=== PATIENT | female | born 1990 | race African-American/Black ===

== ENCOUNTER 2024-05-08 02:59 | Emergency (ER) | payer MEDICAID ==
[~2024-05-08] VITALS: Ht 172.7 cm; Wt 72.0 kg
[2024-05-08 03:00] VITALS: O2SAT 100
[2024-05-08 04:12] LABS: BASOPHILS % 0.5 % (0.0-2.0); EOSINOPHILS % 1.8 % (0.0-5.0); HEMATOCRIT. 38.5 % (36.0-48.0); HEMOGLOBIN. 12.5 g/dL (12.0-16.0); LYMPHOCYTES % 28.5 % (20.0-50.0); MEAN CORPUSCULAR HEMOGLOBIN 27.9 pg (28.0-32.0); MEAN CORPUSCULAR HGB CONC 32.5 g/dL (31.0-37.0); MEAN CORPUSCULAR VOLUME 85.9 fL (81.0-99.0); MEAN PLATELET VOLUME 8.2 fl (7.4-10.4); MONOCYTES % 4.2 % (2.0-8.0); PLATELET 243 x1000/uL (130-400); RED BLOOD CELL COUNT 4.48 mill/uL (4.2-5.4); RED CELL DISTRIBUTION WIDTH 15.4 % (11.6-14.6); WHITE BLOOD COUNT 8.9 x1000/uL (4.5-11.0)
[2024-05-08] MEDS: MORPHINE SULFATE 4 MG/ML INJ (FOR IV/IM USE) IV STA (04:17)
[2024-05-08] MEDS: ONDANSETRON HCL 4MG/2ML INJ IV STA (04:18)
[2024-05-08 04:22] LABS: CHLORIDE 112 mEq/L (98-107); POTASSIUM 3.5 mEq/L (3.5-5.1); SODIUM 142 mEq/L (136-145)
[2024-05-08 04:23] LABS: CARBON DIOXIDE 22 mEq/L (21-32)
[2024-05-08 04:24] LABS: CALCIUM 9.2 mg/dL (8.7-10.4)
[2024-05-08 04:28] LABS: CREATININE 0.8 mg/dL (0.6-1.0); GLUCOSE 87 mg/dL (70-105)
[2024-05-08 04:29] LABS: UREA NITROGEN BLOOD 9 mg/dL (9-23)
[2024-05-08 04:30] LABS: ALANINE AMINOTRANSFERASE 12 IU/L (10-49); ASPARTATE AMINOTRANSFERASE 13 IU/L (<34)
[2024-05-08 04:31] LABS: BILIRUBIN TOTAL 0.4 mg/dL (0.1-1.0); PROTEIN TOTAL 7.2 g/dL (6.0-8.3)
[2024-05-08 04:59] LABS: HCG SCREEN POSITIVE
[2024-05-08 07:12] LABS: CLARITY URINE CLEAR (CLEAR); COLOR URINE YELLOW (YELLOW); GLUCOSE URINE NEGATIVE (NEGATIVE); KETONES URINE 1+ (NEGATIVE); LEUKOCYTE ESTERASE URINE NEGATIVE (NEGATIVE); NITRITE URINE NEGATIVE (NEGATIVE); OCCULT BLOOD URINE 1+ (NEGATIVE); PROTEIN URINE TRACE (NEGATIVE); SPECIFIC GRAVITY URINE 1.035 (1.005-1.030); UROBILINOGEN URINE 0.2 E.U./dL (0.2-1.0)
[2024-05-08] MEDS: SODIUM CHLORIDE 0.9% 1,000 ML IV ONE (07:13)
[2024-05-08 07:15] VITALS: TEMP 36.50292
[2024-05-08] MEDS: MORPHINE SULFATE 4 MG/ML INJ (FOR IV/IM USE) IV ONE (07:15)
[2024-05-08 07:54] VITALS: BP 120/73; PULSE 64; RESP 20; O2SAT 100
[2024-05-08 08:05] LABS: WBC URINE 0-2 /hpf (0-2)
[2024-05-08 08:06] LABS: BACTERIA URINE TRACE; MUCUS URINE 1+ /lpf (< = 2+); SQUAMOUS EPITHELIAL CELL URINE 2+ /lpf (RARE/1+); YEAST URINE NONE SEEN
== END 2024-05-08 09:15 | disposition short-term general hospital (02) ==
LOC: ER 02:59 → CANBEDREQ 09:38
DX: R10.31 Right lower quadrant pain (principal); Z32.01 Encounter for pregnancy test, result positive
CPT/HCPCS: 80053; 81003; 81025; 84703; 84702; 83690; 85025; 36415; 76801; 76817; 96361; 96374; 96375; 96376; 99285; J2405; J2270; J7030; Z7610 ×4